=== PATIENT | female | born 1990 ===

== ENCOUNTER 2017-03-08 09:46 | Emergency (ER) | payer MEDICAID ==
[2017-03-08 09:57] VITALS: RESP 18; TEMP 98.2; O2SAT 97; BMI 30.9
[2017-03-08 10:58] LABS: URINE BILIRUBIN NEGATIVE (NEGATIVE); URINE BLOOD NEGATIVE (NEGATIVE); URINE GLUCOSE (UA) NEGATIVE (NEGATIVE); URINE KETONE NEGATIVE (NEGATIVE); URINE LEUKOCYTE ESTERASE NEGATIVE Leu/uL (NEGATIVE); URINE PROTEIN NEGATIVE mg/dL (<30 mg/dL)
[2017-03-08 10:59] LABS: URINE APPEARANCE CLEAR (CLEAR); URINE COLOR YELLOW (YELLOW)
[2017-03-08 11:29] LABS: ADD MANUAL DIFF? NO
[2017-03-08 11:31] LABS: BASO # 0.02 K/mm3 (0.0-2.0); BASO % 0.3 % (0.0-3.0); EOS # 0.2 (0.0-0.7); EOS % 3.7 % (1.5-5.0); GRAN % 56.9 % (50.0-68.0); HEMATOCRIT 37.8 % (36.0-48.0); LYMPH % 33.1 % (22.0-35.0); MEAN CELL VOLUME 87.5 fL (80.0-105.0); MEAN CORPUSCULAR HEMOGLOBIN 28.2 pg (25.0-35.0); MEAN CORPUSCULAR HGB CONC 32.3 g/dl (31.0-37.0); MONO # 0.4 (0.1-0.6); PLATELET COUNT 172 10^3/uL (120.0-450.0); RED CELL DISTRIBUTION WIDTH 12.9 % (11.5-14.5)
[2017-03-08 11:39] LABS: ALB/GLOB RATIO 1.3 (1.1-1.8); ALKALINE PHOSPHATASE 59 U/L (38-133); ALT/SGPT 29 U/L (7-56); AST/SGOT 18 U/L (15-39); BILIRUBIN,TOTAL 0.6 mg/dL (0.2-1.3); BLOOD UREA NITROGEN 7 mg/dL (7-21); CALCIUM 9.2 mg/dL (8.4-10.5); CARBON DIOXIDE 27 mmol/L (21-33); CHLORIDE 105 mmol/L (98-107); GFR AFRICAN-AMERICAN > 60; GLUCOSE,RANDOM 73 mg/dL (70-110); SODIUM 139 mmol/L (132-148); TOTAL PROTEIN 7.2 g/dL (5.8-8.3)
[2017-03-08 11:41] LABS: POTASSIUM 3.9 mmol/L (3.6-5.0)
[2017-03-08 11:44] LABS: INR 1.06 (0.93-1.08); PARTIAL THROMBOPLASTIN TIME 28.6 Seconds (23.7-30.8)
--- NOTE | 2017-03-08 11:58 | ED PDOC ---
Arrival/HPI - General Historian: Patient - General Chief Complaint: Rib Injury Time Seen by Provider: 03/08/17 09:58 - History of Present Illness Narrative History of Present Illness (Text): 03/08/17 11:52 26yo female with history of anxiety present complaint of back pain. She states that pain started underneath her anterior ribs 3dayss ago. The pain now radiated to her lower back currently. States pain is constant and sharp, but worse when she eats or drinks. she notes history of kidney failure in the past secondary to taking Vancomycin. Also reports surgical history of gastric sleeve last year June. She denies trauma, chest pain, urinary symptoms, nausea, vomiting, diarrhea, melena, hematichezia, tearing/ripping upper back pain, any other complaint. (Shawna Magdaleno) Past Medical History - Provider Review Nursing Documentation Reviewed: Yes - Past History Past History: No Previous - Infectious Disease Hx of Infectious Diseases: None - Tetanus Immunization Tetanus Immunization: Unknown - Cardiac Hx Cardiac Disorders: No - Pulmonary Hx Respiratory Disorders: No - Neurological Hx Neurological Disorder: No - HEENT Hx HEENT Disorder: No - Renal Hx Renal Disorder: Yes Other/Comment: Acute kidney failure with Vancomycin - Endocrine/Metabolic Hx Endocrine Disorders: No - Hematological/Oncological Hx Blood Disorders: Yes Hx Anemia: Yes - Integumentary Hx Dermatological Disorder: No - Musculoskeletal/Rheumatological Hx Musculoskeletal Disorders: No - Gastrointestinal Hx Gastrointestinal Disorders: No - Genitourinary/Gynecological Hx Genitourinary Disorders: No - Psychiatric Hx Psychophysiologic Disorder: Yes Hx Anxiety: Yes Hx Substance Use: No - Past Surgical History Past Surgical History: No Previous - Surgical History Other/Comment: GASTRIC SLEEVE 06/17/16 - Anesthesia Hx Anesthesia: No Hx Anesthesia Reactions: No Hx Malignant Hyperthermia: No - Suicidal Assessment Feels Threatened In Home Enviroment: No Family/Social History - Physician Review Nursing Documentation Reviewed: Yes Family/Social History: Unknown Family HX Smoking Status: Never Smoked Hx Alcohol Use: No Hx Substance Use: No Hx Substance Use Treatment: No Allergies/Home Meds Allergies/Adverse Reactions: Allergies rabies vaccine, renata cell Allergy (Severe, Verified 12/01/16 09:25) ANAPHYLAXIS vancomycin Adverse Reaction (Verified 03/08/17 09:57) ANAPHYLAXIS Home Medications: Home Meds Medication Instructions Recorded Confirmed Escitalopram [Lexapro] 10 mg PO HS 12/01/16 03/08/17 traMADol [Ultram] 50 mg PO Q6 PRN 03/08/17 03/08/17 Review of Systems - Physician Review All systems were reviewed & negative as marked: Yes - Review of Systems Constitutional: Normal Eyes: Normal ENT: Normal Respiratory: Normal Cardiovascular: Normal Gastrointestinal: Normal Genitourinary Female: Normal Musculoskeletal: Back Pain Skin: Normal Neurological: Normal Endocrine: Normal Hemo/Lymphatic: Normal Psychiatric: Normal Physical Exam Vital Signs Reviewed: Yes Temperature: Afebrile Blood Pressure: Normal Pulse: Regular Respiratory Rate: Normal Appearance: Positive for: Well-Appearing, Non-Toxic, Comfortable Pain Distress: None Mental Status: Positive for: Alert and Oriented X 3 - Systems Exam Head: Present: Atraumatic, Normocephalic Pupils: Present: PERRL Extroacular Muscles: Present: EOMI Conjunctiva: Present: Normal Mouth: Present: Moist Mucous Membranes Neck: Present: Normal Range of Motion Respiratory/Chest: Present: Clear to Auscultation, Good Air Exchange. No: Respiratory Distress, Accessory Muscle Use Cardiovascular: Present: Regular Rate and Rhythm, Normal S1, S2. No: Murmurs Abdomen: Present: Normal Bowel Sounds. No: Tenderness, Distention, Peritoneal Signs Back: Present: Normal Inspection, Paraspinal Tenderness. No: CVA Tenderness, Midline Tenderness, Pain with Leg Raise Upper Extremity: Present: Normal Inspection. No: Cyanosis, Edema Lower Extremity: Present: Normal Inspection. No: Edema Neurological: Present: GCS=15, CN II-XII Intact, Speech Normal Skin: Present: Warm, Dry, Normal Color. No: Rashes Psychiatric: Present: Alert, Oriented x 3, Normal Insight, Normal Concentration Vital Signs Temp Pulse Resp BP Pulse Ox 03/08/17 12:35 58 L 18 105/75 97 03/08/17 11:00 55 L 18 103/69 97 03/08/17 09:53 98.2 F 53 L 18 101/67 97 Medical Decision Making ED Course and Treatment: I was available for consultation during PA evaluation. The chart was reviewed by me, and I agree with disposition. The documented history was done by the physician habilitation training specialist. The documented physical exam was done by the physician habilitation training specialist. The documented procedures were done by the physician habilitation training specialist. (Jimmie Levy) 03/08/17 19:24 PT presented for stated history. Her lab was unremarkable. Rib series/CXR - Negative fracture/No PTX Abdominal CT IMPRESSION: 1. 4.9 x 4.7 cm simple cyst in the right ovary. If clinically indicated, pelvic ultrasound may be performed to evaluate for torsion. 2. No CT evidence of acute appendicitis, nephrolithiasis or obstructive uropathy. Incidental finding as noted above. Pt have no abdominal /pelvic tenderness on exam. Result was DW the pt. Her back pain is likely MS in origin. She states she have Tramadol at home. She was DC home with Naprosyn. Advised to f/u with her PMD/ Ortho for further outpt work up. Advised TRT ED for any new or worsening symptoms. (Shawna Magdaleno) - Lab Interpretations Lab Results: 03/08/17 11:15 03/08/17 11:15 Lab Results 03/08/17 11:15: Sodium 139, Potassium 3.9, Chloride 105, Carbon Dioxide 27, Anion Gap 11, BUN 7, Creatinine 0.6, Est GFR ( Amer) > 60, Est GFR (Non- Af Amer) > 60, Random Glucose 73, Calcium 9.2, Total Bilirubin 0.6, AST 18, ALT 29, Alkaline Phosphatase 59, Total Protein 7.2, Albumin 4.1, Globulin 3.1, Albumin/Globulin Ratio 1.3 03/08/17 11:15: PT 11.4, INR 1.06, APTT 28.6 03/08/17 11:15: WBC 6.0 D, RBC 4.32, Hgb 12.2, Hct 37.8, MCV 87.5, MCH 28.2, MCHC 32.3, RDW 12.9, Plt Count 172, MPV 12.0 H, Gran % 56.9, Lymph % (Auto) 33.1 , [place] % (Auto) 6.0, Eos % (Auto) 3.7, Baso % (Auto) 0.3, Gran # 3.40, Lymph # 2.0, [place] # 0.4, Eos # 0.2, Baso # 0.02 03/08/17 10:36: Urine Color Yellow, Urine Appearance Clear, Urine pH 7.0, Ur Specific [place] 1.020, Urine Protein Negative, Urine Glucose (UA) Negative, Urine Ketones Negative, Urine Blood Negative, Urine Nitrate Negative, Urine Bilirubin Negative, Urine Urobilinogen 1.0 H, Ur Leukocyte Esterase Negative - RAD Interpretation Radiology Orders: 03/08/17 10:14 RIBS BILATERAL W/PA CHEST [RAD] Stat 03/08/17 10:19 ABD & PELVIS W/O PO OR IV CONT [CT] Stat - Medication Orders Current Medication Orders: Discontinued Medications Ketorolac Tromethamine (Toradol) 30 mg IVP STAT STA Stop: 03/08/17 10:17 Last Admin: 03/08/17 10:51 Dose: 30 mg Re-Assess: DANIEL Pain Assessment Document 03/08/17 11:51 JOL (Rec: 03/08/17 12:52 JOL [id number]) Pain Reassessment Is this a pain reassessment? Yes Sleep Is patient sleeping during reassessment? No Presence of Pain Presence of Pain Yes Morphine Sulfate (Morphine) 4 mg IVP STAT STA Stop: 03/08/17 12:30 Last Admin: 03/08/17 12:52 Dose: 4 mg Disposition/Present on Arrival - Present on Arrival Any Indicators Present on Arrival: No History of DVT/PE: No History of Uncontrolled Diabetes: No Urinary Catheter: No History of Decub. Ulcer: No History Surgical Site Infection Following: None - Disposition Have Diagnosis and Disposition been Completed?: Yes Disposition Time: 12:15 Patient Plan: Discharge - Disposition Diagnosis: Rib pain, Back pain Disposition: HOME/ ROUTINE Condition: STABLE Discharge Instructions (ExitCare): Chest Pain (ED) Additional Instructions: Follow up with your Doctor Return to ED for any new or worsening Prescriptions: Naproxen [Naprosyn] 500 mg PO BID #20 tab Referrals: Fay Ibarra MD [Primary Care Provider] - Follow up with primary
--- NOTE | 2017-03-08 12:04 | CT ---
PROCEDURE: CT Abdomen and Pelvis without intravenous contrast HISTORY: abdominal/back pain COMPARISON: 09/06/2016 TECHNIQUE: CT scan of the abdomen and pelvis was performed without administration of intravenous contrast. Oral contrast was not administered. Coronal and sagittal reformatted images were obtained. Radiation dose: Total exam DLP = 1095.80 mGy-cm. This CT exam was performed using one or more of the following dose reduction techniques: Automated exposure control, adjustment of the mA and/or kV according to patient size, and/or use of iterative reconstruction technique. FINDINGS: LOWER THORAX: The lung bases are clear. LIVER: The liver is normal in size. No intrahepatic biliary ductal dilatation. GALLBLADDER AND BILE DUCTS: The gallbladder is contracted. PANCREAS: The pancreas is normal in size. No ductal dilatation or calcifications. SPLEEN: The spleen is normal in size. ADRENALS: Both adrenal glands are normal in size without discrete nodule. KIDNEYS AND URETERS: Both kidneys are normal in size without hydronephrosis or nephrolithiasis. VASCULATURE: No aortic aneurysm. BOWEL: Status post gastric bypass surgery The small bowel loops are normal in caliber. The colon is unremarkable. APPENDIX: Normal appendix. PERITONEUM: No free fluid. No free air. LYMPH NODES: No enlarged lymph nodes. BLADDER: Unremarkable. REPRODUCTIVE: The uterus is normal in size. There is a 4.9 x 4.7 cm simple cyst in the right ovary. BONES: No acute fracture. Within normal limits for the patient's age. OTHER FINDINGS: There are small fat containing ventral midline and right paramedian hernias. IMPRESSION: 1. 4.9 x 4.7 cm simple cyst in the right ovary. If clinically indicated, pelvic ultrasound may be performed to evaluate for torsion. 2. No CT evidence of acute appendicitis, nephrolithiasis or obstructive uropathy.
[2017-03-08] MEDS ORDERED: Morphine 4 mg/ml ISec IVP STA (12:29)
[2017-03-08 12:35] VITALS: BP 105/75; PULSE 58
--- NOTE | 2017-03-08 12:46 | RAD ---
PROCEDURE: Radiographs of the chest and bilateral ribs HISTORY: rib pain COMPARISON: None available. TECHNIQUE: Frontal radiograph of the chest and multiple oblique radiographs of the bilateral ribs were obtained. FINDINGS: RIGHT RIBS: No fracture or focal lesion visualized. LEFT RIBS: No fracture or focal lesion visualized. LUNGS: Clear. PLEURA: No pneumothorax or pleural fluid. CARDIOVASCULAR: Normal sized heart. No pulmonary vascular congestion. OTHER FINDINGS: None. IMPRESSION: Unremarkable radiographs of the chest and bilateral ribs. No rib fracture.
== END 2017-03-08 13:19 | disposition home or self-care (01) ==
LOC: ED 09:46
DX: M54.9 Dorsalgia, unspecified (principal); R07.89 Other chest pain
CPT/HCPCS: 71111; 74176; 80053; 81003; 85025; 85610; 85730; 96374; 96375; 99284; J1885; J2270

== ENCOUNTER 2017-04-13 01:55 | Observation (INO) | payer MEDICAID ==
[2017-04-13 01:55] VITALS: BMI 30.9
[2017-04-13 02:09] VITALS: PULSE 72
--- NOTE | 2017-04-13 02:24 | ED PDOC ---
Arrival/HPI - General Chief Complaint: Abdominal Pain Time Seen by Provider: 04/13/17 01:58 Historian: Patient - History of Present Illness Narrative History of Present Illness (Text): 04/13/17 02:17 Fausto Del Castillo is a 26 year old female, with a history of ovarian cyst and gastric sleeve, presents to the emergency department complaining of 3 day duration of right lower quadrant abdominal pain. Reports symptoms are associated with nausea,vomiting but denies any diarrhea. Last menstrual cycle was early April. Denies any burning while urination but reports of difficulty voiding completely.No vaginal discharge. Denies any fever, chills, headache, back pain,dizziness, chest pain, shortness of breath, or any other complaints at this time. Time/Duration: Other (3 days ) Symptom Onset: Gradual Symptom Course: Unchanged Severity Level: Mild Past Medical History - Provider Review Nursing Documentation Reviewed: Yes - Past History Past History: No Previous - Infectious Disease Hx of Infectious Diseases: None - Tetanus Immunization Tetanus Immunization: Unknown - Cardiac Hx Cardiac Disorders: No Other/Comment: hypotension - Pulmonary Hx Respiratory Disorders: No - Neurological Hx Neurological Disorder: No - HEENT Hx HEENT Disorder: No - Renal Hx Renal Disorder: Yes Other/Comment: Acute kidney failure with Vancomycin - Endocrine/Metabolic Hx Endocrine Disorders: No - Hematological/Oncological Hx Blood Disorders: Yes Hx Anemia: Yes - Integumentary Hx Dermatological Disorder: No - Musculoskeletal/Rheumatological Hx Musculoskeletal Disorders: No - Gastrointestinal Hx Gastrointestinal Disorders: No - Genitourinary/Gynecological Hx Genitourinary Disorders: No - Psychiatric Hx Psychophysiologic Disorder: Yes Hx Anxiety: Yes Hx Substance Use: No - Past Surgical History Past Surgical History: No Previous - Surgical History Other/Comment: GASTRIC SLEEVE 06/17/16 - Anesthesia Hx Anesthesia: No Hx Anesthesia Reactions: No Hx Malignant Hyperthermia: No - Suicidal Assessment Feels Threatened In Home Enviroment: No Family/Social History - Physician Review Nursing Documentation Reviewed: Yes Family/Social History: No Known Family HX Smoking Status: Never Smoked Hx Alcohol Use: No Hx Substance Use: No Hx Substance Use Treatment: No Allergies/Home Meds Allergies/Adverse Reactions: Allergies rabies vaccine, renata cell Allergy (Severe, Verified 04/13/17 02:10) ANAPHYLAXIS vancomycin Adverse Reaction (Verified 04/13/17 02:10) ANAPHYLAXIS Home Medications: Home Meds Medication Instructions Recorded Confirmed No Known Home Med 04/13/17 04/13/17 Review of Systems - Physician Review All systems were reviewed & negative as marked: Yes - Review of Systems Constitutional: Normal. absent: Fatigue, Fevers Respiratory: Normal. absent: SOB, Cough Cardiovascular: Normal. absent: Chest Pain, Palpitations Gastrointestinal: Abdominal Pain (RLQ ), Nausea. absent: Diarrhea, Vomiting Genitourinary Female: absent: Dysuria Musculoskeletal: Normal Neurological: Normal. absent: Headache, Dizziness Psychiatric: Normal Physical Exam Vital Signs Reviewed: Yes Vital Signs Temp Pulse Resp BP Pulse Ox 04/13/17 02:05 98.2 F 72 18 119/58 L 99 Temperature: Afebrile Blood Pressure: Normal Pulse: Regular Respiratory Rate: Normal Appearance: Positive for: Well-Appearing, Non-Toxic, Comfortable Pain Distress: None Mental Status: Positive for: Alert and Oriented X 3 - Systems Exam Head: Present: Atraumatic, Normocephalic Pupils: Present: PERRL Conjunctiva: Present: Normal Mouth: Present: Moist Mucous Membranes Respiratory/Chest: Present: Clear to Auscultation, Good Air Exchange. No: Respiratory Distress, Accessory Muscle Use Cardiovascular: Present: Regular Rate and Rhythm, Normal S1, S2. No: Murmurs Abdomen: Present: Tenderness (RLQ tenderness ), Normal Bowel Sounds. No: Distention, Peritoneal Signs, Rebound, Guarding Upper Extremity: Present: Normal Inspection. No: Cyanosis, Edema Lower Extremity: Present: Normal Inspection. No: Edema Neurological: Present: GCS=15, CN II-XII Intact, Speech Normal, Motor Func Grossly Intact, Normal Sensory Function Skin: Present: Warm, Dry, Normal Color. No: Rashes Psychiatric: Present: Alert, Oriented x 3, Normal Insight, Normal Concentration Medical Decision Making ED Course and Treatment: 04/13/17 02:25 Impression: A 26 year old female who presents to the emergency department complaining of right lower quadrant abdominal pain with nausea for past 3 days. Plan: -- Labs -- IV fluids -- HCG -- US Transvag -- Reassess and disposition Progress Notes: 04/13/17 03:36 US Pelvis, Transvaginal results reviewed: FINDINGS: Uterus/cervix: The uterus is retroverted and measures 9.7 cm in its cephalocaudad dimension and 4.3 x 6.1 cm in its AP and lateral dimensions transabdominal. The endometrium measures 10 mm transabdominally and 11 mm transvaginal. No myometrial mass. Right ovary: The right ovary measures 2.8 x 3.7 x 1.7 cm and demonstrates blood flow and minimal follicular change. Left ovary: The left ovary measures 3.6 x 4.0 x 2.8 cm and demonstrates blood flow and a small complex or hemorrhagic cyst measuring 12 x 11 x 10 mm it reflect a corpus luteum cyst. Free fluid: No significant free fluid. Other findings: Bowel loops are noted in the right lower quadrant. IMPRESSION: 1. Small left ovarian hemorrhagic cyst measuring 10 x 11 x 12 mm which may reflect a corpus luteum cyst. 2. Otherwise negative pelvic sonogram 04/13/17 05:22 CT abdomen pelvis reviewed: FINDINGS: Lower thorax: The bilateral lung bases are clear. ABDOMEN: Liver: No acute findings. Gallbladder and bile ducts: The gallbladder is decompressed. No calcified stones. No significant intra- or extrahepatic biliary ductal dilation. Pancreas: Enhances homogeneously. No ductal dilation. No discrete mass. Spleen: No acute findings. Adrenals: No acute findings. Kidneys and ureters: No acute findings. No hydronephrosis or renal calculi. No discrete solid mass. PELVIS: Bladder: No acute findings. Reproductive: An involuting cyst is identified within the left ovary measuring 2 cm in greatest dimension. Appendix: The air filled appendix is of normal caliber (series 2, image 93) . ABDOMEN and PELVIS: Stomach and bowel: No obstruction. No mucosal thickening. Peritoneum: No significant fluid collection. No free air. Lymph nodes: No pathologically enlarged lymph nodes. Vasculature: Unremarkable. Bones: No acute fracture. IMPRESSION: Normal appendix. 2 cm involuting cyst within the left ovary 04/13/17 05:45 Case was d/w medical lab technologist and house physician .Accepts to hospitalist service for further evaluation of intractable RLQ abd. pain with intractable N/V. vice president sales and marketing also to evaluate pt. - Lab Interpretations Lab Results: 04/13/17 02:40 04/13/17 02:40 Lab Results 04/13/17 02:40: WBC 9.0 D, RBC 4.04, Hgb 11.3 L, Hct 34.9 L, MCV 86.4, MCH 28.0 , MCHC 32.4, RDW 13.6, Plt Count 171, MPV 12.3 H 04/13/17 02:40: Sodium 138, Potassium 3.9, Chloride 103, Carbon Dioxide 25, Anion Gap 14, BUN 12, Creatinine 0.6, Est GFR ( Amer) > 60, Est GFR (Non- Af Amer) > 60, Random Glucose 77, Calcium 9.3, Total Bilirubin 0.5, AST 22, ALT 28, Alkaline Phosphatase 55, Total Protein 7.0, Albumin 4.1, Globulin 2.9, Albumin/Globulin Ratio 1.4 04/13/17 02:40: Urine Color Yellow, Urine Appearance Sl cloudy, Urine pH 6.0, Ur Specific [place] 1.020, Urine Protein Negative, Urine Glucose (UA) Negative, Urine Ketones Negative, Urine Blood Negative, Urine Nitrate Negative, Urine Bilirubin Negative, Urine Urobilinogen 1.0 H, Ur Leukocyte Esterase Small H, Urine RBC 0 - 2, Urine WBC 10 - 15, Ur Epithelial Cells 0 - 2, Urine Bacteria Small, Urine HCG, Qual Negative - RAD Interpretation Radiology Orders: 04/13/17 02:19 TRANSVAGINAL [US] Stat 04/13/17 03:51 ABD & PELVIS IV CONTRAST ONLY [CT] Stat - Medication Orders Current Medication Orders: Sodium Chloride (Sodium Chloride 0.9%) 1,000 mls @ 100 mls/hr IV .Q10H ANNMARIE Last Admin: 04/13/17 03:04 Dose: 100 mls/hr Ceftriaxone Sodium (Rocephin 1 Gram Ivpb) 1 gm in 100 mls @ 200 mls/hr IV ONCE STA PRN Reason: Protocol Stop: 04/13/17 06:16 Discontinued Medications Iohexol (Omnipaque 350 100 Ml) Confirm Administered Dose 350 mg .ROUTE .STK-MED ONE Stop: 04/13/17 04:08 Ketorolac Tromethamine (Toradol) 30 mg IVP ONCE ONE Stop: 04/13/17 05:45 Metoclopramide HCl (Reglan) 10 mg IVP ONCE ONE Stop: 04/13/17 04:07 Last Admin: 04/13/17 04:24 Dose: 10 mg Ondansetron HCl (Zofran Inj) 4 mg IVP ONCE ONE Stop: 04/13/17 03:05 Last Admin: 04/13/17 03:07 Dose: 4 mg - Scribe Statement The provider has reviewed the documentation as recorded by the Mykeibe Michael Haq Provider Attestation: Provider Mykeibcaty Attestation: All medical record entries made by the Yancy were at my direction and personally dictated by me. I have reviewed the chart and agree that the record accurately reflects my personal performance of the history, physical exam, medical decision making, and the department course for this patient. I have also personally directed, reviewed, and agree with the discharge instructions and disposition. Disposition/Present on Arrival - Present on Arrival Any Indicators Present on Arrival: No History of DVT/PE: No History of Uncontrolled Diabetes: No Urinary Catheter: No History of Decub. Ulcer: No History Surgical Site Infection Following: None - Disposition Have Diagnosis and Disposition been Completed?: Yes Diagnosis: Right lower quadrant abdominal pain, Intractable nausea and vomiting, UTI ( urinary tract infection) Disposition: HOSPITALIZED Disposition Time: 05:50 Patient Plan: Observation Patient Problems: Current Active Problems Problem Status Onset Intractable nausea and vomiting Acute Right lower quadrant abdominal pain Acute UTI (urinary tract infection) Acute Condition: STABLE
[2017-04-13] MEDS: Sodium Chloride 0.9% 1,000 ML IV SCH ×2 (03:04→07:04)
[2017-04-13 03:22] LABS: URINE BILIRUBIN NEGATIVE (NEGATIVE); URINE BLOOD NEGATIVE (NEGATIVE); URINE GLUCOSE (UA) NEGATIVE (NEGATIVE); URINE LEUKOCYTE ESTERASE SMALL Leu/uL (NEGATIVE); URINE NITRATE NEGATIVE (NEGATIVE); URINE PROTEIN NEGATIVE mg/dL (<30 mg/dL)
[2017-04-13 03:24] LABS: HEMOGLOBIN 11.3 gm/dL (12.0-16.0); MEAN CELL VOLUME 86.4 fL (80.0-105.0); MEAN CORPUSCULAR HGB CONC 32.4 g/dl (31.0-37.0); MEAN PLATELET VOLUME 12.3 fl (7.0-11.0); RBC 4.04 10^6/uL (3.5-6.1); RED CELL DISTRIBUTION WIDTH 13.6 % (11.5-14.5)
[2017-04-13 03:26] LABS: ALB/GLOB RATIO 1.4 (1.1-1.8); ALBUMIN 4.1 g/dL (3.0-4.8); ALT/SGPT 28 U/L (7-56); AST/SGOT 22 U/L (15-39); BLOOD UREA NITROGEN 12 mg/dL (7-21); CALCIUM 9.3 mg/dL (8.4-10.5); GFR AFRICAN-AMERICAN > 60; GFR NON-AFRICAN AMERICAN > 60
[2017-04-13 03:27] LABS: HCG,QUALITATIVE URINE NEGATIVE (NEGATIVE)
[2017-04-13 03:28] LABS: URINE APPEARANCE SL CLOUDY (CLEAR); URINE COLOR YELLOW (YELLOW)
[2017-04-13 03:34] LABS: URINE BACTERIA SMALL (NEG); URINE EPITHELIAL CELLS 0 - 2 /hpf (0-5); URINE RBC 0 - 2 /hpf (0-2)
[2017-04-13] MEDS ORDERED: Iohexol 350 MG/100 ML VIAL ONE (04:07)
--- NOTE | 2017-04-13 05:17 | CT ---
EXAM: CT Abdomen and Pelvis With Intravenous Contrast CLINICAL HISTORY: 26 years old, female; Pain; Abdominal pain; Flank; Right lower quadrant (rlq); Prior surgery; Additional info: Right lower abdominal pain TECHNIQUE: Axial computed tomography images of the abdomen and pelvis with intravenous contrast. This CT exam was performed using one or more of the following dose reduction techniques: automated exposure control, adjustment of the mA and/or kV according to patient size, and/or use of iterative reconstruction technique. Coronal and sagittal reformatted images were created and reviewed. CONTRAST: 96 mL of OMNI 350 administered intravenously. COMPARISON: CT - ABD PELVIS W/O PO OR IV CONT 03/08/2017 11:32:02 AM FINDINGS: Lower thorax: The bilateral lung bases are clear. ABDOMEN: Liver: No acute findings. Gallbladder and bile ducts: The gallbladder is decompressed. No calcified stones. No significant intra- or extrahepatic biliary ductal dilation. Pancreas: Enhances homogeneously. No ductal dilation. No discrete mass. Spleen: No acute findings. Adrenals: No acute findings. Kidneys and ureters: No acute findings. No hydronephrosis or renal calculi. No discrete solid mass. PELVIS: Bladder: No acute findings. Reproductive: An involuting cyst is identified within the left ovary measuring 2 cm in greatest dimension. Appendix: The air filled appendix is of normal caliber (series 2, image 93) . ABDOMEN and PELVIS: Stomach and bowel: No obstruction. No mucosal thickening. Peritoneum: No significant fluid collection. No free air. Lymph nodes: No pathologically enlarged lymph nodes. Vasculature: Unremarkable. Bones: No acute fracture. IMPRESSION: Normal appendix. 2 cm involuting cyst within the left ovary.
[2017-04-13] MEDS ORDERED: cefTRIAXone 1 gm 1 GM/100 ML BAG IV STA (05:47)
[2017-04-13 06:24] VITALS: BP 99/51; RESP 16; TEMP 98.3; O2SAT 100
--- NOTE | 2017-04-13 06:40 | CP.PCM.HP ---
History of Present Illness - History of Present Illness History of Present Illness: Nahid Vidal DO PGY 1 CC: Intractible N/V HPI: Ms. Del Castillo is a 26 y/o female with a PMHx of ovarian cyst who presented with intractible vomiting and right sided abdominal pain. Patient said this started 5 days ago, but today the pain is much worse because taking steps is painful. Patient denies fevers/chills/cp/sob/gu symptoms, but also admits to hemoptysis. PMHx: Ovarian cyst; Anemia PSHx: Gastric sleeve Allergies: Rabies vaccine, renata cell, vancomycin SocHx: EtOH: Denies Smoking: Denies Illicits: Denies FamHx: Non pertinent Meds: No home meds Present on Admission - Present on Admission Any Indicators Present on Admission: No Review of Systems - Review of Systems Review of Systems: ROS: Constitutional: pt denies fever, chills, generalized weakness ENT: pt denies dysphagia, ofalgia, hearing deficit, rhinorrhea Eyes: pt denies sudden loss of vision, diplopia, blurred vision MSK: pt denies muscle stiffness, joint pain, extremity cramping Cardio: pt denies cp, sob, dvt Pulm: pt denies cough, hemoptysis, wheeze GI: +see hpi : pt denies burning on urination, urinary frequency, hematuria, urinary urgency Neuro: pt denies paresis, paresthesia, dizziness, hester, numbness, tingling Derm: pt denies skin changes, lesions, nail changes Endo: pt denies intolerance to heat/cold, diaphoresis, night sweats, polydipsia Psych: pt denies anxiety, depression, mood changes Past Patient History - Infectious Disease Hx of Infectious Diseases: None - Tetanus Immunizations Tetanus Immunization: Unknown - Past Social History Smoking Status: Never Smoked - CARDIAC Hx Cardiac Disorders: No Other/Comment: hypotension - PULMONARY Hx Respiratory Disorders: No - NEUROLOGICAL Hx Neurological Disorder: No - HEENT Hx HEENT Problems: No - RENAL Hx Chronic Kidney Disease: Yes Other/Comment: Acute kidney failure with Vancomycin - ENDOCRINE/METABOLIC Hx Endocrine Disorders: No - HEMATOLOGICAL/ONCOLOGICAL Hx Blood Disorders: Yes Hx Anemia: Yes - INTEGUMENTARY Hx Dermatological Problems: No - MUSCULOSKELETAL/RHEUMATOLOGICAL Hx Musculoskeletal Disorders: No - GASTROINTESTINAL Hx Gastrointestinal Disorders: No - GENITOURINARY/GYNECOLOGICAL Hx Genitourinary Disorders: No - PSYCHIATRIC Hx Psychophysiologic Disorder: Yes Hx Anxiety: Yes Hx Substance Use: No - SURGICAL HISTORY Other/Comment: GASTRIC SLEEVE 06/17/16 - ANESTHESIA Hx Anesthesia: No Hx Anesthesia Reactions: No Hx Malignant Hyperthermia: No Meds Allergies/Adverse Reactions: Allergies Allergy/AdvReac Type Severity Reaction Status Date / Time rabies vaccine, renata cell Allergy Severe ANAPHYLAXIS Verified 04/13/17 02:10 vancomycin AdvReac ANAPHYLAXIS Verified 04/13/17 02:10 Physical Exam - Additional Findings Additional findings: VS: As above Constitutional: obese female, a&o x 4, nad Head and Neck: neck supple, no jvd, trachea midline, carotid midline, no cervical/head mass Eyes: hailee, nonicteric sclera, eom intact ENT: auditory acuity grossly intact, throat not congested, no nasal deformity Cardio: rrr, no m/r/g, no carotid bruit, nml s1, s2 Pulm: no accessory muscle use, equal nml breath sounds bilaterally, ctab Abd: +TTP RLQ, LLQ; bruise on RLQ; s/nd, nbs x 4 q, no palpable masses Derm: no rashes, no ulcers, no lesions Extr: no edema, no cyanosis, no calf tenderness, no lesions, no varicosities Neuro: cn II-XII grossly intact, ue and le 3+ muscle strength bilaterally, no los ue, le bilaterally and core Results - Vital Signs Recent Vital Signs: Last Vital Signs Temp 98.3 F 04/13/17 06:24 Pulse 72 04/13/17 06:24 Resp 16 04/13/17 06:24 BP 99/51 L 04/13/17 06:24 Pulse Ox 100 04/13/17 06:24 - Labs Result Diagrams: 04/13/17 02:40 04/13/17 02:40 Assessment & Plan - Assessment and Plan (Free Text) Assessment: A/P: 1.) Intractible nausea vomiting - CT shows 2 cm cyst - CT shows nad in the appendix - F/u TVUS 2.) UTI - Monitor UA - Mild Leuk Esterase elevation 3.) Diet - NPO 4.) DVT PPHXS -SCDs
--- NOTE | 2017-04-13 12:01 | US ---
HISTORY: pain. Right lower quadrant. 26-year-old female. LMP 03/31/2017 COMPARISON: None available. TECHNIQUE: Transvaginal FINDINGS: UTERUS: Measures 9.7 x 4.3 x 6.1 cm. Normal in size. Retroverted. No fibroid or other mass lesion seen. ENDOMETRIUM: Measures 10 mm in diameter. Unremarkable. CERVIX: No cervical abnormality identified. RIGHT OVARY: Measures 3.6 x 1.7 x 2.8 cm. No solid mass. Normal flow. LEFT OVARY: Measures 3.9 x 2.8 x 3.6 cm. No solid mass. Normal flow. 1.1 x 1.1 x 0.9 cm complex small cyst/complex follicular cyst. A small hemorrhagic cyst or complex corpus luteal cyst considerations. FREE FLUID: Small amount of free fluid in the cul-de-sac noted OTHER FINDINGS: Prominent bowel loops in the right lower quadrant. IMPRESSION: Right lower quadrant prominent bowel loops -nonspecific. This does not exclude appendicitis -if this is clinically suspect. Small approximately 1 cm left ovarian complex follicular/cyst /complex left small corpus luteal cyst . Minimal free fluid in the cul-de-sac Comments: A preliminary report provided by Nicole
--- NOTE | 2017-04-13 16:50 | CP.PCM.DIS ---
<Pranav Pugh - Last Filed: 04/13/17 16:51> Provider - Provider Date of Admission: 04/13/17 05:48 Attending physician: Jordon Lakhani MD Primary care physician: Camille Samuels MD Time Spent in preparation of Discharge (in minutes): 45 Diagnosis - Discharge Diagnosis (1) Right lower quadrant abdominal pain Status: Acute Priority: Medium (2) UTI (urinary tract infection) Status: Acute Priority: Medium Hospital Course - Lab Results Lab Results: Most Recent Lab Values WBC 9.0 10^3/ul (4.5-11.0) D 04/13/17 02:40 RBC 4.04 10^6/uL (3.5-6.1) 04/13/17 02:40 Hgb 11.3 gm/dL (12.0-16.0) L 04/13/17 02:40 Hct 34.9 % (36.0-48.0) L 04/13/17 02:40 MCV 86.4 fL (80.0-105.0) 04/13/17 02:40 MCH 28.0 pg (25.0-35.0) 04/13/17 02:40 MCHC 32.4 g/dl (31.0-37.0) 04/13/17 02:40 RDW 13.6 % (11.5-14.5) 04/13/17 02:40 Plt Count 171 10^3/uL (120.0-450.0) 04/13/17 02:40 MPV 12.3 fl (7.0-11.0) H 04/13/17 02:40 Sodium 138 mmol/L (132-148) 04/13/17 02:40 Potassium 3.9 mmol/L (3.6-5.0) 04/13/17 02:40 Chloride 103 mmol/L (98-107) 04/13/17 02:40 Carbon Dioxide 25 mmol/L (21-33) 04/13/17 02:40 Anion Gap 14 (10-20) 04/13/17 02:40 BUN 12 mg/dL (7-21) 04/13/17 02:40 Creatinine 0.6 mg/dL (0.5-1.4) 04/13/17 02:40 Est GFR ( Amer) > 60 04/13/17 02:40 Est GFR (Non-Af Amer) > 60 04/13/17 02:40 Random Glucose 77 mg/dL (70-110) 04/13/17 02:40 Calcium 9.3 mg/dL (8.4-10.5) 04/13/17 02:40 Total Bilirubin 0.5 mg/dL (0.2-1.3) 04/13/17 02:40 AST 22 U/L (15-39) 04/13/17 02:40 ALT 28 U/L (7-56) 04/13/17 02:40 Alkaline Phosphatase 55 U/L (38-133) 04/13/17 02:40 Total Protein 7.0 g/dL (5.8-8.3) 04/13/17 02:40 Albumin 4.1 g/dL (3.0-4.8) 04/13/17 02:40 Globulin 2.9 gm/dL 04/13/17 02:40 Albumin/Globulin Ratio 1.4 (1.1-1.8) 04/13/17 02:40 Urine Color Yellow (YELLOW) 04/13/17 02:40 Urine Appearance Sl cloudy (CLEAR) 04/13/17 02:40 Urine pH 6.0 (4.7-8.0) 04/13/17 02:40 Ur Specific [place] 1.020 (1.005-1.035) 04/13/17 02:40 Urine Protein Negative mg/dL (<30 mg/dL) 04/13/17 02:40 Urine Glucose (UA) Negative mg/dL (NEGATIVE) 04/13/17 02:40 Urine Ketones Negative mg/dL (NEGATIVE) 04/13/17 02:40 Urine Blood Negative (NEGATIVE) 04/13/17 02:40 Urine Nitrate Negative (NEGATIVE) 04/13/17 02:40 Urine Bilirubin Negative (NEGATIVE) 04/13/17 02:40 Urine Urobilinogen 1.0 E.U./dL (<1 E.U./dL) H 04/13/17 02:40 Ur Leukocyte Esterase Small Os[place]/uL (NEGATIVE) H 04/13/17 02:40 Urine RBC 0 - 2 /hpf (0-2) 04/13/17 02:40 Urine WBC 10 - 15 /hpf (0-6) 04/13/17 02:40 Ur Epithelial Cells 0 - 2 /hpf (0-5) 04/13/17 02:40 Urine Bacteria Small (NEG) 04/13/17 02:40 Urine HCG, Qual Negative (NEGATIVE) 04/13/17 02:40 - Hospital Course Hospital Course: 26 y/o F with PMH of ovarian cysts initially presented to the ED for abdominal pain and vomiting. Pt had abdominal/pelvis CT performed which showed 2 mm cyst on left ovary. Pt also had transvaginal ultrasound which showed a 1 cm left ovarian complex/luteal cyst. Pt was found to have a UTI on UA and was placed on rocephin in the hospital. Pt's vomiting subsided and had diet slowly advanced. Pt was sent home with Bactrim for UTI. Pt also told to follow up with [facility] gr[facility] for ovarian cyst. Discharge Exam - Head Exam Head Exam: ATRAUMATIC, NORMAL INSPECTION, NORMOCEPHALIC - ENT Exam ENT Exam: Mucous Membranes Moist - Respiratory Exam Respiratory Exam: NORMAL BREATHING PATTERN, UNREMARKABLE - Cardiovascular Exam Cardiovascular Exam: RRR, +S1, +S2 - GI/Abdominal Exam GI & Abdominal Exam: Normal Bowel Sounds, Soft, Tenderness (RLQ) - Extremities Exam Extremities exam: normal inspection - Neurological Exam Neurological exam: Alert, Oriented x3 - Psychiatric Exam Psychiatric exam: Normal Affect, Normal Mood - Skin Skin Exam: Intact, Normal Color, Warm Discharge Plan - Discharge Medications Prescriptions: Sulfamethoxazole/Trimethoprim [Bactrim Ds Tablet] 160 mg PO BID #14 tablet - Follow Up Plan Condition: STABLE Disposition: HOME/ ROUTINE Instructions: Urinary Tract Infection in Women (DC), Urinary Tract Infection in Men (DC), Acute Abdominal Pain (DC), Acute Abdominal Pain (GEN), Dysuria (GEN ) Additional Instructions: Please follow up with [facility] outpatient Please return to hospital if symptoms worsen Follow up with PMD within 1 week Referrals: Camille Samuels MD [Primary Care Provider] - Follow up with primary <Jordon Lakhani - Last Filed: 04/14/17 13:54> Provider - Provider Date of Admission: 04/13/17 05:48 Attending physician: Jordon Lakhani MD Primary care physician: Camille Samuels MD Hospital Course - Lab Results Lab Results: Most Recent Lab Values WBC 9.0 10^3/ul (4.5-11.0) D 04/13/17 02:40 RBC 4.04 10^6/uL (3.5-6.1) 04/13/17 02:40 Hgb 11.3 gm/dL (12.0-16.0) L 04/13/17 02:40 Hct 34.9 % (36.0-48.0) L 04/13/17 02:40 MCV 86.4 fL (80.0-105.0) 04/13/17 02:40 MCH 28.0 pg (25.0-35.0) 04/13/17 02:40 MCHC 32.4 g/dl (31.0-37.0) 04/13/17 02:40 RDW 13.6 % (11.5-14.5) 04/13/17 02:40 Plt Count 171 10^3/uL (120.0-450.0) 04/13/17 02:40 MPV 12.3 fl (7.0-11.0) H 04/13/17 02:40 Sodium 138 mmol/L (132-148) 04/13/17 02:40 Potassium 3.9 mmol/L (3.6-5.0) 04/13/17 02:40 Chloride 103 mmol/L (98-107) 04/13/17 02:40 Carbon Dioxide 25 mmol/L (21-33) 04/13/17 02:40 Anion Gap 14 (10-20) 04/13/17 02:40 BUN 12 mg/dL (7-21) 04/13/17 02:40 Creatinine 0.6 mg/dL (0.5-1.4) 04/13/17 02:40 Est GFR ( Amer) > 60 04/13/17 02:40 Est GFR (Non-Af Amer) > 60 04/13/17 02:40 Random Glucose 77 mg/dL (70-110) 04/13/17 02:40 Calcium 9.3 mg/dL (8.4-10.5) 04/13/17 02:40 Total Bilirubin 0.5 mg/dL (0.2-1.3) 04/13/17 02:40 AST 22 U/L (15-39) 04/13/17 02:40 ALT 28 U/L (7-56) 04/13/17 02:40 Alkaline Phosphatase 55 U/L (38-133) 04/13/17 02:40 Total Protein 7.0 g/dL (5.8-8.3) 04/13/17 02:40 Albumin 4.1 g/dL (3.0-4.8) 04/13/17 02:40 Globulin 2.9 gm/dL 04/13/17 02:40 Albumin/Globulin Ratio 1.4 (1.1-1.8) 04/13/17 02:40 Urine Color Yellow (YELLOW) 04/13/17 02:40 Urine Appearance Sl cloudy (CLEAR) 04/13/17 02:40 Urine pH 6.0 (4.7-8.0) 04/13/17 02:40 Ur Specific [place] 1.020 (1.005-1.035) 04/13/17 02:40 Urine Protein Negative mg/dL (<30 mg/dL) 04/13/17 02:40 Urine Glucose (UA) Negative mg/dL (NEGATIVE) 04/13/17 02:40 Urine Ketones Negative mg/dL (NEGATIVE) 04/13/17 02:40 Urine Blood Negative (NEGATIVE) 04/13/17 02:40 Urine Nitrate Negative (NEGATIVE) 04/13/17 02:40 Urine Bilirubin Negative (NEGATIVE) 04/13/17 02:40 Urine Urobilinogen 1.0 E.U./dL (<1 E.U./dL) H 04/13/17 02:40 Ur Leukocyte Esterase Small [place]min/uL (NEGATIVE) H 04/13/17 02:40 Urine RBC 0 - 2 /hpf (0-2) 04/13/17 02:40 Urine WBC 10 - 15 /hpf (0-6) 04/13/17 02:40 Ur Epithelial Cells 0 - 2 /hpf (0-5) 04/13/17 02:40 Urine Bacteria Small (NEG) 04/13/17 02:40 Urine HCG, Qual Negative (NEGATIVE) 04/13/17 02:40 Attending/Attestation - Attestation I have personally seen and examined this patient.: Yes I have fully participated in the care of the patient.: Yes I have reviewed all pertinent clinical information, including history, physical exam and plan: Yes Notes (Text): I have seen and examined patient at bedside. Agree with the note dictated by the resident. Briefly this is 26 year old female with history of ovarian cyst who presented with abdominal pain and vomiting possibly secondary to gastroenteritis which was completely resolved after she was admitted. She was able to tolerate the full liquids. Patient has a young child with her and wanted to be discharged js. UA was weakly positive. Will send her home on bactrim. Advised patient to follow up with pmd and obgyn as an outpatient. Dr Jordon Lakhani.
[2017-04-14] MEDS ORDERED: cefTRIAXone 1 gm 1 GM/100 ML BAG IVPB SCH (10:00)
== END 2017-04-13 18:33 | disposition home or self-care (01) ==
LOC: ED 01:55 → ERH 05:48 → 5RSO 06:45
PROVIDERS: ADMIT Hospitalist; ATTEND Hospitalist
DX: N39.0 Urinary tract infection, site not specified (principal); N83.12 Corpus luteum cyst of left ovary; K52.9 Noninfective gastroenteritis and colitis, unspecified; I95.9 Hypotension, unspecified; F41.9 Anxiety disorder, unspecified; D64.9 Anemia, unspecified; Z88.7 Allergy status to serum and vaccine; Z88.1 Allergy status to other antibiotic agents; Z87.892 Personal history of anaphylaxis; R40.2412 Glasgow coma scale score 13-15, at arrival to emergency department; N85.4 Malposition of uterus; R10.31 Right lower quadrant pain; R04.2 Hemoptysis; Z87.448 Personal history of other diseases of urinary system
CPT/HCPCS: 74177; 76830; 80053; 81001; 84703; 85027; 87086; 96361; 96365; 96375; 99284; G0378; J0696; J1885; J2405; J2765; J7040; Q9967

== ENCOUNTER 2018-06-05 19:37 | Emergency (ER) | payer MEDICAID ==
[2018-06-05 20:03] VITALS: BMI 31.8
[2018-06-05 20:08] VITALS: O2SAT 100
[2018-06-05] MEDS ORDERED: Sodium Chloride 0.9% 1,000 ML IV STA (20:21)
--- NOTE | 2018-06-05 20:34 | ED PDOC ---
Arrival/HPI - General Historian: Patient - General Chief Complaint: Female Genitourinary Time Seen by Provider: 06/05/18 20:12 - History of Present Illness Narrative History of Present Illness (Text): 06/05/18 20:30 28 year old female, with no significant past medical history, presents to the Emergency department with lower quadrant abdominal pain bilaterally for the past 4 days. Patient states it started out with minimal dull pain with clear, non-odorous discharge from the vagina. The discharge subsided, however the pain continued to worsen. The pain is sharp, constant and radiates around to the back bilaterally, left greater than right. She has not taken anything for the pain. Admits to nausea, vomiting, subjective fevers, chills, back pain, and shortness of breath. Last menstrual period was May 23, lasted 3 days and was normal. She is currently sexually active with one partner. They use protection and she is not taking and OCPs. She denies dysuria, hematuria, vaginal bleeding, vaginal discharge, headache, dizziness, chest pain, or palpitations. (Efra Carrizales) Past Medical History - Provider Review Nursing Documentation Reviewed: Yes - Past History Past History: No Previous - Infectious Disease Hx of Infectious Diseases: None - Tetanus Immunization Tetanus Immunization: Unknown - Cardiac Hx Cardiac Disorders: No Other/Comment: hypotension - Pulmonary Hx Respiratory Disorders: No - Neurological Hx Neurological Disorder: No - HEENT Hx HEENT Disorder: No - Renal Hx Renal Disorder: Yes Other/Comment: Acute kidney failure with Vancomycin - Endocrine/Metabolic Hx Endocrine Disorders: No - Hematological/Oncological Hx Blood Disorders: Yes Hx Anemia: Yes - Integumentary Hx Dermatological Disorder: No - Musculoskeletal/Rheumatological Hx Musculoskeletal Disorders: No - Gastrointestinal Hx Gastrointestinal Disorders: No - Genitourinary/Gynecological Hx Genitourinary Disorders: No - Psychiatric Hx Psychophysiologic Disorder: Yes Hx Anxiety: Yes Hx Substance Use: No - Past Surgical History Past Surgical History: No Previous - Surgical History Other/Comment: GASTRIC SLEEVE 06/17/16 - Anesthesia Hx Anesthesia: No Hx Anesthesia Reactions: No Hx Malignant Hyperthermia: No - Suicidal Assessment Feels Threatened In Home Enviroment: No Family/Social History - Physician Review Nursing Documentation Reviewed: Yes Family/Social History: No Known Family HX Smoking Status: Never Smoked Hx Alcohol Use: No Hx Substance Use: No Hx Substance Use Treatment: No Allergies/Home Meds Allergies/Adverse Reactions: Allergies rabies vaccine, renata cell Allergy (Severe, Verified 04/13/17 02:10) ANAPHYLAXIS vancomycin Adverse Reaction (Verified 06/05/18 20:02) NAUSEA Home Medications: Home Meds Medication Instructions Recorded Confirmed No Known Home Med 06/05/18 06/05/18 Review of Systems - Physician Review All systems were reviewed & negative as marked: Yes - Review of Systems Constitutional: Fevers Eyes: absent: Vision Changes ENT: absent: Hearing Changes Respiratory: SOB Cardiovascular: absent: Chest Pain, Palpitations Gastrointestinal: Abdominal Pain, Nausea, Vomiting. absent: Constipation, Diarrhea Genitourinary Female: absent: Dysuria, Frequency, Hematuria, Urine Output Changes, Vaginal Bleeding, Vaginal Discharge Musculoskeletal: Back Pain Skin: absent: Rash, Skin Lesions Neurological: absent: Headache, Dizziness Endocrine: absent: Diaphoresis Physical Exam Vital Signs Reviewed: Yes Temperature: Afebrile (99..8) Blood Pressure: Normal Pulse: Tachycardic Respiratory Rate: Normal Appearance: Positive for: Non-Toxic, Uncomfortable Pain Distress: Moderate Mental Status: Positive for: Alert and Oriented X 3 - Systems Exam Head: Present: Atraumatic, Normocephalic Pupils: Present: PERRL Extroacular Muscles: Present: EOMI Conjunctiva: Present: Normal Mouth: Present: Dry Respiratory/Chest: Present: Clear to Auscultation, Good Air Exchange. No: Respiratory Distress, Accessory Muscle Use Cardiovascular: Present: Regular Rate and Rhythm, Normal S1, S2. No: Murmurs Abdomen: Present: Tenderness. No: Distention, Peritoneal Signs, Rebound, Guarding, McBurney's Point Tender, Rovsing's Sign Present Back: Present: CVA Tenderness Skin: Present: Warm, Dry, Normal Color. No: Rashes Psychiatric: Present: Alert, Oriented x 3 Vital Signs Temp Pulse Resp BP Pulse Ox 06/05/18 22:37 99.9 F H 96 H 18 123/58 L 100 06/05/18 21:25 99.5 F 97 H 18 112/66 100 06/05/18 20:30 99.8 F H 06/05/18 20:08 103 H 16 122/54 L 100 Medical Decision Making ED Course and Treatment: Patient is a 28 year old female, with no significant past medical history, presenting to the Emergency room with lower quadrant abdominal pain bilaterally. Patient was tachycardic, back CVA tenderness, and abdominal tenderness as stated on physical examination. Patient Seen With Resident: In agreement with resident note. Patient was seen and evaluated with resident, came up with plan and treatment together. (Rebecca Cameron) 06/05/18 20:36 28F, no PMH, presents with bilateral lower quadrant abdominal pain radiating to the back. Patient complains of vaginal discharge. CBC, CMP, Urinalysis, urine culture, CTAP w/ IV contrast ordered. 1L NS bolus given. 06/05/18 21:12 CBC shows microcytic anemia. CMP within normal limits. 06/05/18 22:51 Urinalysis shows mild leukocyte esterase. 06/05/18 22:55 EXAM: CT Abdomen and Pelvis With Intravenous Contrast EXAM DATE/TIME: 06/05/2018 8:25 PM CLINICAL HISTORY: 28 years old, female; Pain; Abdominal pain; Acute; Additional info: Lower abdominal pain TECHNIQUE: Axial computed tomography images of the abdomen and pelvis with intravenous contrast. All CT scans at this facility use at least one of these dose optimization techniques: automated exposure control; mA and/or kV adjustment per patient size (includes targeted exams where dose is matched to clinical indication); or iterative reconstruction. CONTRAST: 100 ml of OMNI 350 administered intravenously. COMPARISON: CT - ABD PELVIS IV CONTRAST ONLY 04/13/2017 4:25 AM FINDINGS: Lower thorax: No acute findings. ABDOMEN: Liver: Normal. No mass. Gallbladder and bile ducts: Normal. No calcified stones. No ductal dilation. Pancreas: Normal. No ductal dilation. Spleen: Normal. No splenomegaly. Adrenals: Normal. No mass. Kidneys and ureters: Normal. No hydronephrosis. Stomach and bowel: No evidence of bowel obstruction. Sutures along the stomach. Appendix: Visualized portions of appendix appear normal. PELVIS: Bladder: Unremarkable as visualized. Reproductive: Uterus appears within normal limits. Small cysts suspected in bilateral ovaries. ABDOMEN and PELVIS: Intraperitoneal space: Mild pelvic free fluid. Bones/joints: No acute fracture. No dislocation. Soft tissues: Rounded 1 cm fat containing umbilical hernia. Vasculature: Normal. No abdominal aortic aneurysm. Lymph nodes: Normal. No enlarged lymph nodes. IMPRESSION: 1. Visualized portions of appendix appear normal. 2. No evidence of bowel obstruction. 3. Mild pelvic free fluid. 4. Small cysts suspected in bilateral ovaries. Thank you for allowing us to participate in the care of your patient. Dictated and Authenticated by: Chelsi White MD With setting of vaginal discharge, low grade temperature, and tachycardia, patient will still be treated for STI with 1 dose IM rocephin, doxycycline, and flagyl. If symptoms worsen, including but not limited to, increased vaginal discharge, bleeding, fevers, please return to the Emergency room Patient verbalized agreement and understanding of treatment plan. Case reviewed and discussed with attending provider. (Efra Carrizales) - Lab Interpretations Lab Results: 06/05/18 20:55 06/05/18 20:55 Lab Results 06/05/18 21:43: Urine Color Yellow, Urine Appearance Slight-cloudy, Urine pH 7.5 , Ur Specific [place] 1.020, Urine Protein Negative, Urine Glucose (UA) Negative , Urine Ketones Negative, Urine Blood Negative, Urine Nitrate Negative, Urine Bilirubin Negative, Urine Urobilinogen 1.0 H, Ur Leukocyte Esterase Small H, Urine RBC Negative, Urine WBC 1 - 3, Ur Epithelial Cells Many, Amorphous Sediment Few, Urine Bacteria Few 06/05/18 20:55: Sodium 142, Potassium 3.6, Chloride 106, Carbon Dioxide 24, Anion Gap 15, BUN 10, Creatinine 0.8, Est GFR ( Amer) > 60, Est GFR (Non- Af Amer) > 60, Random Glucose 56 L, Calcium 8.7, Phosphorus 2.1 L, Magnesium 1.6 L, Total Bilirubin 0.6, AST 18, ALT 21, Alkaline Phosphatase 55, Total Protein 7.1, Albumin 4.0, Globulin 3.1, Albumin/Globulin Ratio 1.3 06/05/18 20:55: WBC 10.7, RBC 3.87, Hgb 9.1 L, Hct 29.3 L, MCV 75.7 L, MCH 23.5 L, MCHC 31.1, RDW 15.6 H, Plt Count 177, MPV 12.1 H, Gran % 81.8 H, Lymph % ( Auto) 10.9 L, [place] % (Auto) 6.5 H, Eos % (Auto) 0.6 L, Baso % (Auto) 0.2, Gran # 8.75 H, Lymph # (Auto) 1.2, [place] # (Auto) 0.7 H, Eos # (Auto) 0.1, Baso # ( Auto) 0.02 - RAD Interpretation Radiology Orders: 06/05/18 20:25 ABD & PELVIS IV CONTRAST ONLY [CT] Stat - Medication Orders Current Medication Orders: Discontinued Medications Sodium Chloride (Sodium Chloride 0.9%) 1,000 mls @ 999 mls/hr IV .Q1H1M STA Stop: 06/05/18 21:21 Last Admin: 06/05/18 20:35 Dose: 999 mls/hr eMAR Start Stop Document 06/05/18 20:35 RG (Rec: 06/05/18 21:08 RG [id number]) Intravenous Solution Start Date 06/05/18 Start Time 20:35 End Date 06/05/18 End time 21:35 Total Infusion Time 60 Disposition/Present on Arrival - Present on Arrival Any Indicators Present on Arrival: No History of DVT/PE: No History of Uncontrolled Diabetes: No Urinary Catheter: No History of Decub. Ulcer: No History Surgical Site Infection Following: None - Disposition Have Diagnosis and Disposition been Completed?: Yes Disposition Time: 23:03 Patient Plan: Discharge - Disposition Diagnosis: Cyst, ovarian, Pelvic inflammatory disease (PID) Disposition: HOME/ ROUTINE Condition: GOOD Discharge Instructions (ExitCare): Pelvic Inflammatory Disease (DC), Ovarian Cyst (DC) Additional Instructions: Please follow up with your primary care doctor within 3-5 days. Please take antibiotics as prescribed. If symptoms worsen, please return to the Emergency department. Referrals: Fay Ibarra MD [Primary Care Provider] - Follow up with primary Forms: [employer] (Chinese)
[2018-06-05 21:00] LABS: BASO # 0.02 K/mm3 (0.0-2.0); BASO % 0.2 % (0.0-3.0); EOS # 0.1 (0.0-0.7); EOS % 0.6 % (1.5-5.0); GRAN # 8.75 (1.4-6.5); GRAN % 81.8 % (50.0-68.0); HEMOGLOBIN 9.1 g/dL (12.0-16.0); LYMPH # 1.2 (1.2-3.4); LYMPH % 10.9 % (22.0-35.0); MEAN CELL VOLUME 75.7 fl (80.0-105.0); MEAN CORPUSCULAR HEMOGLOBIN 23.5 pg (25.0-35.0); MEAN CORPUSCULAR HGB CONC 31.1 g/dl (31.0-37.0); MEAN PLATELET VOLUME 12.1 fl (7.0-11.0); MONO # 0.7 (0.1-0.6); MONO % 6.5 % (1.0-6.0); RBC 3.87 10^6/uL (3.5-6.1); RED CELL DISTRIBUTION WIDTH 15.6 % (11.5-14.5); WHITE BLOOD COUNT 10.7 10^3/ul (4.5-11.0)
[2018-06-05 21:10] LABS: ALB/GLOB RATIO 1.3 (1.1-1.8); ALT/SGPT 21 U/L (7-56); AST/SGOT 18 U/L (14-36); BLOOD UREA NITROGEN 10 mg/dL (7-21); CALCIUM 8.7 mg/dL (8.4-10.5); GFR NON-AFRICAN AMERICAN > 60
[2018-06-05] MEDS ORDERED: Iohexol 350 MG/100 ML VIAL ONE (21:47)
[2018-06-05 21:51] VITALS: RESP 18
[2018-06-05 21:59] LABS: PH,URINE 7.5 (4.7-8.0); URINE APPEARANCE SLIGHT-CLOUDY (CLEAR); URINE BILIRUBIN NEGATIVE (NEGATIVE); URINE BLOOD NEGATIVE (NEGATIVE); URINE COLOR YELLOW (YELLOW); URINE GLUCOSE (UA) NEGATIVE (NEGATIVE); URINE LEUKOCYTE ESTERASE SMALL Leu/uL (NEGATIVE); URINE PROTEIN NEGATIVE mg/dL (<30 mg/dL)
[2018-06-05 22:07] LABS: URINE RBC NEGATIVE /hpf (0-2)
[2018-06-05 22:08] LABS: URINE AMORPHOUS SEDIMENT FEW; URINE BACTERIA FEW (NEG); URINE EPITHELIAL CELLS MANY /hpf (0-5)
[2018-06-05] MEDS ORDERED: cefTRIAXone (Rocephin) 250 mg Inj IM STA (22:59)
[2018-06-06 03:33] VITALS: BP 113/67; PULSE 80; TEMP 99.5
--- NOTE | 2018-06-06 08:30 | CT ---
Date of service: 06/05/2018 PROCEDURE: CT Abdomen and Pelvis with contrast HISTORY: lower abdominal pain COMPARISON: 04/13/2027 TECHNIQUE: Contrast dose: 100 mL Omnipaque 350 Radiation dose: Total exam DLP = 560.76 mGy-cm. This CT exam was performed using one or more of the following dose reduction techniques: Automated exposure control, adjustment of the mA and/or kV according to patient size, and/or use of iterative reconstruction technique. FINDINGS: LOWER THORAX: Unremarkable. LIVER: Unremarkable. No gross lesion or ductal dilatation. GALLBLADDER AND BILE DUCTS: Unremarkable. PANCREAS: Unremarkable. No gross lesion or ductal dilatation. SPLEEN: Unremarkable. ADRENALS: Unremarkable. No mass. KIDNEYS AND URETERS: Unremarkable. No hydronephrosis. No solid mass. VASCULATURE: Unremarkable. No aortic aneurysm. BOWEL: No evidence of bowel obstruction. There are sutures seen longitudinally along the greater curvature of the stomach which may be the result of prior sleeve gastrectomy. This is unchanged from previous. No other abnormal bowel loops are identified. APPENDIX: Normal appendix. PERITONEUM: No ascites. Two very small supraumbilical midline ventral hernias containing only mesenteric fat. This is unchanged. LYMPH NODES: Unremarkable. No enlarged lymph nodes. BLADDER: Unremarkable. REPRODUCTIVE: Retroverted uterus. BONES: No acute fracture. OTHER FINDINGS: None. IMPRESSION: No acute abnormality. Incidentally noted retroverted uterus. Two small supraumbilical ventral hernias containing only mesenteric fat. The preliminary findings for this examination were reported by [employer] at 10:53 p.m. on 06/05/2018. There is concurrence of this report with the preliminary findings.
== END 2018-06-05 23:15 | disposition home or self-care (01) ==
LOC: ED 19:37
DX: N73.9 Female pelvic inflammatory disease, unspecified (principal); N83.209 Unspecified ovarian cyst, unspecified side
CPT/HCPCS: 74177; 80053; 81001; 83735; 84100; 85025; 87086; 87491; 87591; 96360; 96372; 99285; J0696; J7030; Q9967

== ENCOUNTER 2019-02-28 09:04 | Emergency (ER) | payer SELFPAY ==
[2019-02-28 09:04] VITALS: BMI 31.8
[2019-02-28] MEDS ORDERED: Sodium Chloride 0.9% 1,000 ML IV STA (09:31)
--- NOTE | 2019-02-28 09:38 | ED PDOC ---
Arrival/HPI - General Chief Complaint: Female Genitourinary Time Seen by Provider: 02/28/19 09:11 Historian: Patient - History of Present Illness Narrative History of Present Illness (Text): 02/28/19 09:33 A 28 year old female, A1, presents to the emergency department with a complaint of 2 month duration intermittent right lower, upper, and right flank pain which has become steady for the past week. She notes that her LNMP was December 09. She is a non smoker, non- drinker, and denies any drug use. Patient reports that she has unintentionally lost about 20 lbs over the past 2 months. The patient denies fevers, chills, headache, dizziness, chest pain, shortness of breath, dyspnea on exertion, cough, nausea, vomiting, diarrhea, neck pain, urinary/bowel changes, frequency, hematuria, dysuria, vaginal discharge/bleeding , or any other complaint. Time/Duration: Other (2 months) Symptom Onset: Sudden Symptom Course: Intermittent Activities at Onset: Rest, Light Context: Home Past Medical History - Provider Review Nursing Documentation Reviewed: Yes - Past History Past History: No Previous - Infectious Disease Hx of Infectious Diseases: None - Tetanus Immunization Tetanus Immunization: Unknown - Cardiac Hx Cardiac Disorders: No Other/Comment: hypotension - Pulmonary Hx Respiratory Disorders: No - Neurological Hx Neurological Disorder: No - HEENT Hx HEENT Disorder: No - Renal Hx Renal Disorder: Yes Other/Comment: Acute kidney failure with Vancomycin - Endocrine/Metabolic Hx Endocrine Disorders: No - Hematological/Oncological Hx Blood Disorders: Yes Hx Anemia: Yes - Integumentary Hx Dermatological Disorder: No - Musculoskeletal/Rheumatological Hx Musculoskeletal Disorders: No - Gastrointestinal Hx Gastrointestinal Disorders: No - Genitourinary/Gynecological Hx Genitourinary Disorders: Yes Hx Urinary Tract Infection: Yes - Psychiatric Hx Psychophysiologic Disorder: Yes Hx Anxiety: Yes Hx Substance Use: No - Past Surgical History Past Surgical History: No Previous - Surgical History Other/Comment: GASTRIC SLEEVE 06/17/16 - Anesthesia Hx Anesthesia: No Hx Anesthesia Reactions: No Hx Malignant Hyperthermia: No - Suicidal Assessment Feels Threatened In Home Enviroment: No Family/Social History - Physician Review Nursing Documentation Reviewed: Yes Family/Social History: No Known Family HX Smoking Status: Never Smoked Hx Alcohol Use: No Hx Substance Use: No Hx Substance Use Treatment: No Allergies/Home Meds Allergies/Adverse Reactions: Allergies rabies vaccine, renata cell Allergy (Severe, Verified 02/28/19 09:13) ANAPHYLAXIS vancomycin Adverse Reaction (Verified 02/28/19 09:13) NAUSEA Review of Systems - Physician Review All systems were reviewed & negative as marked: Yes - Review of Systems Constitutional: absent: Fevers Respiratory: absent: SOB, Cough Cardiovascular: absent: Chest Pain, STEIN[place]G Gastrointestinal: Abdominal Pain (right upper and lower quadrant abdominal pain. ). absent: Stool Changes, Diarrhea, Nausea, Vomiting Genitourinary Female: absent: Dysuria, Frequency, Hematuria, Urine Output Changes, Vaginal Bleeding, Vaginal Discharge Musculoskeletal: absent: Neck Pain Neurological: absent: Headache, Dizziness Physical Exam Vital Signs Reviewed: Yes Vital Signs Temp Pulse Resp BP Pulse Ox 02/28/19 09:14 97.9 F 80 16 103/68 100 Temperature: Afebrile Blood Pressure: Normal Pulse: Regular Respiratory Rate: Normal Appearance: Positive for: Well-Appearing, Non-Toxic, Comfortable Pain Distress: None Mental Status: Positive for: Alert and Oriented X 3 - Systems Exam Head: Present: Atraumatic, Normocephalic Pupils: Present: PERRL Extroacular Muscles: Present: EOMI Conjunctiva: Present: Normal Mouth: Present: Moist Mucous Membranes Neck: Present: Normal Range of Motion Respiratory/Chest: Present: Clear to Auscultation, Good Air Exchange. No: Respiratory Distress, Accessory Muscle Use Cardiovascular: Present: Regular Rate and Rhythm, Normal S1, S2. No: Murmurs Abdomen: Present: Tenderness (Mild right upper and lower quadrant abdominal ), Other (Obese). No: Distention, Peritoneal Signs, Rebound, Guarding Back: Present: Normal Inspection. No: CVA Tenderness Upper Extremity: Present: Normal Inspection. No: Cyanosis, Edema Lower Extremity: Present: Normal Inspection. No: Edema Neurological: Present: GCS=15, CN II-XII Intact, Speech Normal Skin: Present: Warm, Dry, Normal Color. No: Rashes Psychiatric: Present: Alert, Oriented x 3, Normal Insight, Normal Concentration Medical Decision Making ED Course and Treatment: 02/28/19 09:39 Impression: A 28 year old female presents to the emergency department with a complaint of 2 month duration right upper and lower quadrant abdominal pain. Plan: -- Abdomen/Pelvis CT -- Urinalysis -- Labs -- Toradol and IV Fluids -- Reassess and disposition Prior Visits: Notes and results from previous visits were reviewed. Progress Notes: 02/28/19 09:42 02/28/19 12:12 CT scan of the abdomen and pelvis as read by the radiologist is unremarkable. Patient will be treated for her UTI and follow-up with PMD. Follow-up in ER as needed. - Lab Interpretations I have reviewed the lab results: Yes - Scribe Statement The provider has reviewed the documentation as recorded by the Scribe Gay Concepcion Provider Scribe Attestation: All medical record entries made by the Scribe were at my direction and personally dictated by me. I have reviewed the chart and agree that the record accurately reflects my personal performance of the history, physical exam, medical decision making, and the department course for this patient. I have also personally directed, reviewed, and agree with the discharge instructions and disposition. Disposition/Present on Arrival - Present on Arrival Any Indicators Present on Arrival: No History of DVT/PE: No History of Uncontrolled Diabetes: No Urinary Catheter: No History of Decub. Ulcer: No History Surgical Site Infection Following: None - Disposition Have Diagnosis and Disposition been Completed?: Yes Diagnosis: UTI (urinary tract infection) Disposition: HOME/ ROUTINE Disposition Time: 12:12 Patient Plan: Discharge Condition: GOOD Discharge Instructions (ExitCare): Urinary Tract Infections in Adults, Kidney Infection Prescriptions: Sulfamethoxazole/Trimethoprim [Bactrim DS 800 mg-160 mg] 1 tab PO BID #14 tab Forms: [facility] (Thai), WORK NOTE
[2019-02-28 10:07] LABS: BASO # 0.02 K/mm3 (0.0-2.0); BASO % 0.3 % (0.0-3.0); EOS # 0.2 (0.0-0.7); HEMOGLOBIN 8.6 g/dL (12.0-16.0); LYMPH # 1.5 (1.2-3.4); LYMPH % 22.5 % (22.0-35.0); MEAN CELL VOLUME 70.8 fl (80.0-105.0); MEAN CORPUSCULAR HEMOGLOBIN 21.5 pg (25.0-35.0); MEAN CORPUSCULAR HGB CONC 30.4 g/dl (31.0-37.0); MONO # 0.3 (0.1-0.6); MONO % 4.9 % (1.0-6.0); PLATELET COUNT 203 10^3/uL (120.0-450.0); RED CELL DISTRIBUTION WIDTH 16.9 % (11.5-14.5); URINE BILIRUBIN NEGATIVE (NEGATIVE); URINE BLOOD TRACE-INTACT (NEGATIVE); URINE GLUCOSE (UA) NEGATIVE (NEGATIVE); URINE LEUKOCYTE ESTERASE LARGE Leu/uL (NEGATIVE); URINE PROTEIN 30 mg/dL (<30 mg/dL); WHITE BLOOD COUNT 6.7 10^3/uL (4.5-11.0)
[2019-02-28 10:09] LABS: URINE APPEARANCE CLOUDY (CLEAR); URINE COLOR YELLOW (YELLOW)
[2019-02-28 10:11] LABS: URINE BACTERIA MOD /hpf; URINE RBC 0 - 2 /hpf (0-2); URINE WBC TNTC /hpf (0-6)
[2019-02-28 10:12] LABS: ALB/GLOB RATIO 1.3 (1.1-1.8)
[2019-02-28 10:14] LABS: ALBUMIN 4.1 g/dL (3.0-4.8); ALT/SGPT 17 U/L (7-56); AST/SGOT 17 U/L (14-36); BLOOD UREA NITROGEN 12 mg/dL (7-21); CALCIUM 9.2 mg/dL (8.4-10.5); GFR NON-AFRICAN AMERICAN > 60; LIPASE 300 U/L (23-300)
[2019-02-28] MEDS ORDERED: cefTRIAXone 1 gm 1 GM/100 ML BAG IVPB STA (11:05)
--- NOTE | 2019-02-28 12:07 | CT ---
Date of service: 02/28/2019 PROCEDURE: CT Abdomen and Pelvis without intravenous contrast HISTORY: Abdominal prom/right pain. Negative test (concurrent with this examination). COMPARISON: 04/13/2017 and 06/05/2018. Serial CT scans abdomen. TECHNIQUE: Unenhanced. Neither IV nor oral contrast administered Radiation dose: Total exam DLP = 783.51 mGy-cm. This CT exam was performed using one or more of the following dose reduction techniques: Automated exposure control, adjustment of the mA and/or kV according to patient size, and/or use of iterative reconstruction technique. FINDINGS: LOWER THORAX: Unremarkable. LIVER: Unremarkable. No gross lesion or ductal dilatation. GALLBLADDER AND BILE DUCTS: Unremarkable. PANCREAS: Unremarkable. No gross lesion or ductal dilatation. SPLEEN: Unremarkable. ADRENALS: Unremarkable. No mass. KIDNEYS AND URETERS: Unremarkable. No hydronephrosis. No solid mass. VASCULATURE: Unremarkable. No aortic aneurysm. No atherosclerotic calcification or mural plaque present. BOWEL: Postoperative findings related to gastric sleeve procedure. APPENDIX: A normal appendix is visualized in it's entirety. PERITONEUM: Unremarkable. No free fluid. No free air. LYMPH NODES: Unremarkable. No enlarged lymph nodes. BLADDER: Unremarkable. REPRODUCTIVE: Unremarkable. BONES: No acute fracture. OTHER FINDINGS: Small fat containing ventral hernias (2). IMPRESSION: No acute or significant findings related to/ accounting for the clinical presentation. Additional benign and/or incidental findings described above. No significant interval change compared to the prior examination(s).
[2019-02-28 12:27] VITALS: BP 91/74; PULSE 64; RESP 15; TEMP 98.7; O2SAT 99
== END 2019-02-28 12:25 | disposition home or self-care (01) ==
LOC: ED 09:04
DX: N39.0 Urinary tract infection, site not specified (principal)
CPT/HCPCS: 74176; 80053; 81001; 81025; 83690; 83735; 85025; 87086; 87181; 96361; 96365; 96375; 99283; J0696; J1885; J7030